=== PATIENT | female | born 1940 | race Caucasian/White ===

== ENCOUNTER 2019-09-12 08:45 | Outpatient (CLI) | payer MEDICARE ==
--- NOTE | 2019-11-28 09:40 | RAD ---
2 VIEWS CHEST: HISTORY: Dyspnea. COMPARISON: 06/06/2019. FINDINGS: Cardiac silhouette and pulmonary vasculature are within normal limits. Calcified pleural plaques areli g the lateral left chest with pleural and parenchymal scarring, as well as stable bullous formation i n the left lung apex. Blunting left lateral costophrenic angle is also again seen, likely attributabl e to pleural and parenchymal scarring. Right lung is clear. No new consolidation or pleural fluid is appreciated. There has been no interval change compared to the prior exam. IMPRESSION: Stable chest with chronic changes left hemithorax including calcified pleural based plaques which can be seen with prior asbestos exposure. POS: [facility]
== END 2019-09-12 08:46 | disposition home or self-care (01) ==
LOC: RAD 08:45
PROVIDERS: ATTEND Internal Medicine Critical Care Medicine
DX: R06.00 Dyspnea, unspecified (principal); J92.0 Pleural plaque with presence of asbestos
CPT/HCPCS: 71046

== ENCOUNTER 2023-03-16 11:53 | Outpatient (CLI) | payer OTHER ==
[~2023-03-16 11:53] MED LIST: Magnevist 469MG/ML 20 ML VIAL ONE
== END 2023-03-16 11:54 | disposition home or self-care (01) ==
LOC: MRI 11:53
PROVIDERS: ATTEND Otolaryngology Otolaryngic Allergy
DX: H90.A22 Sensorineural hearing loss, unilateral, left ear, with restricted hearing on the contralateral side (principal); G93.89 Other specified disorders of brain; H61.892 Other specified disorders of left external ear
CPT/HCPCS: 70553

== ENCOUNTER 2023-04-29 08:33 | Outpatient (CLI) | payer OTHER | END 2023-04-29 08:34 | disposition home or self-care (01) | LOC: BICCT 08:33 | PROVIDERS: ATTEND Neurological Surgery | DX: D16.4 Benign neoplasm of bones of skull and face (principal); M89.9 Disorder of bone, unspecified | CPT/HCPCS: 70450 ==

== ENCOUNTER 2023-07-13 13:17 | Outpatient (CLI) | payer OTHER | END 2023-07-13 13:18 | disposition home or self-care (01) | LOC: MRI 13:17 | PROVIDERS: ATTEND Neurological Surgery | DX: D16.9 Benign neoplasm of bone and articular cartilage, unspecified (principal); D33.3 Benign neoplasm of cranial nerves | CPT/HCPCS: 70553; 82565 ==

== ENCOUNTER 2024-07-26 11:00 | Outpatient (CLI) | payer OTHER | END 2024-07-26 13:00 | disposition home or self-care (01) | LOC: SCSMRI 11:00 | PROVIDERS: ATTEND Neurological Surgery | DX: D16.9 Benign neoplasm of bone and articular cartilage, unspecified (principal) | CPT/HCPCS: 36415; 70553; 82565 ==